=== PATIENT | female | born 1990 | race Hispanic/Latino ===

== ENCOUNTER 2022-04-24 09:46 | Observation (INO) | payer OTHER ==
[~2022-04-24] VITALS: Ht 157.5 cm; Wt 103.0 kg
[2022-04-24 11:11] VITALS: BP 141/71
[2022-04-29] MEDS ORDERED: FERR-82 PO (21:19)
[2022-04-29] MEDS ORDERED: LABE100T5 PO (21:19)
[2022-04-29] MEDS ORDERED: PREN-18 PO (21:19)
[2022-04-29] MEDS ORDERED: AEC81 PO (21:19)
== END 2022-04-24 11:12 | disposition home or self-care (01) ==
LOC: LDH 09:46
PROVIDERS: ADMIT Obstetrics & Gynecology; ATTEND Obstetrics & Gynecology
DX: O99.323 Drug use complicating pregnancy, third trimester (principal); F12.90 Cannabis use, unspecified, uncomplicated; O99.313 Alcohol use complicating pregnancy, third trimester; Z72.89 Other problems related to lifestyle; Z3A.37 37 weeks gestation of pregnancy
CPT/HCPCS: 59025; G0378

== ENCOUNTER 2023-03-19 05:07 | Emergency (ER) | payer BC, OTHER ==
[~2023-03-19] VITALS: Ht 162.6 cm; Wt 85.7 kg
[~2023-03-19 05:07] MED LIST: AEC81 PO; FERR-82 PO; FERR325T22 PO; IBUP-2077 PO; LABE100T7 PO; PREN-18 PO
[2023-03-19] MEDS ORDERED: ACETAMINOPHEN 500 MG TABLET ONE (05:12)
[2023-03-19] MEDS ORDERED: 0.9%NACL 1000ML 1,000 ML IV ONE (05:12)
[2023-03-19] MEDS ORDERED: CIPR-278 PO (05:25)
[2023-03-19] MEDS ORDERED: TAMS-1 PO (05:25)
[2023-03-19 05:26] LABS: BASOPHILS % (AUTO) 0.2 % (0.0-5.0); EOSINOPHILS % (AUTO) 0.5 % (0.0-8.0); HEMATOCRIT 40.5 % (36-48); LYMPHOCYTES % (AUTO) 12.3 % (21.0-51.0); MEAN CORPUSCULAR HEMOGLOBIN 30.5 pg (27.0-33.0); MEAN CORPUSCULAR HGB CONC 35.1 g/dL (32.0-36.0); MEAN CORPUSCULAR VOLUME 87.1 fL (79-99); MONOCYTES % (AUTO) 5.9 % (3.0-13.0); NEUTROPHILS % (AUTO) 80.5 % (40.0-77.0); PLATELET COUNT (AUTO) 241 K/uL (130-400); RED BLOOD CELL COUNT(AUTO) 4.65 MIL/uL (4.00-5.50); RED CELL DISTRIBUTION WIDTH 12.2 % (11.0-15.5)
[2023-03-19 05:43] LABS: ALBUMIN 3.5 g/dL (3.5-5.0); POTASSIUM 3.4 mmol/L (3.5-5.1); TOTAL PROTEIN, SERUM 7.9 g/dL (6.0-8.3)
[2023-03-19] MEDS ORDERED: LIDOCAINE HCL-MPF 2% 5ML VIAL ONE (05:49)
[2023-03-19] MEDS ORDERED: KETOROLAC 30MG VIAL (30MG/ML) IVP ONE (06:00)
[2023-03-19] MEDS ORDERED: CEFTRIAXONE 1G VIAL IVPB ONE (06:00)
[2023-03-19] MEDS ORDERED: ONDANSETRON 4MG INJ IVP ONE (06:00)
[2023-03-19 07:01] LABS: APPEARANCE,URINE CLEAR (CLEAR); BILIRUBIN,URINE NEGATIVE (NEGATIVE); COLOR,URINE LIGHT-YELLOW (YELLOW); GLUCOSE, URINE (UA) NEGATIVE (NEGATIVE); KETONES,URINE NEGATIVE (NEGATIVE); LEUKOCYTE ESTERASE ,URINE 250 Leu/uL (NEGATIVE); NITRATE,URINE NEGATIVE (NEGATIVE); OCCULT BLOOD,URINE SMALL (NEGATIVE); PROTEIN,URINE 10 mg/dL (NEGATIVE); UROBILINOGEN,URINE 0.2 mg/dL (0.2-1.0)
[2023-03-19 07:06] LABS: MUCUS,URINE RARE LPF (None Seen); SQUAMOUS EPITHELIAL CELL,UR RARE /HPF (0-2); WBC,URINE 26-50 /HPF (0-1)
[2023-03-19 07:56] VITALS: BP 151/74
[2023-03-19] MEDS ORDERED: CEPH500B PO (08:49)
== END 2023-03-19 08:59 | disposition home or self-care (01) ==
LOC: EDH 05:07
DX: N10 Acute pyelonephritis (principal); Z79.82 Long term (current) use of aspirin; Z20.822 Contact with and (suspected) exposure to COVID-19
CPT/HCPCS: 99284; 74176; 96365; 96375; 96361; 87426; 80053; 84703; 83690; 85025; 87040; 87088; 87880; 87804 ×2; 83605; 81001; 36415; J7030; J0696; J2405; J1885; J3490

== ENCOUNTER 2024-06-02 15:07 | Observation (INO) | payer BC ==
[~2024-06-02 15:07] MED LIST changes: +CEPH500B PO; +CIPR-278 PO; +TAMS-1 PO
[2024-06-02 15:50] LABS: APPEARANCE,URINE CLEAR (CLEAR); BILIRUBIN,URINE NEGATIVE (NEGATIVE); COLOR,URINE LIGHT-YELLOW (YELLOW); GLUCOSE, URINE (UA) NEGATIVE (NEGATIVE); KETONES,URINE NEGATIVE (NEGATIVE); LEUKOCYTE ESTERASE ,URINE NEGATIVE Leu/uL (NEGATIVE); NITRATE,URINE NEGATIVE (NEGATIVE); OCCULT BLOOD,URINE NEGATIVE (NEGATIVE); PH,URINE 6.5 (5.0-8.0); PROTEIN,URINE NEGATIVE (NEGATIVE); UROBILINOGEN,URINE 0.2 mg/dL (0.2-1.0)
[2024-06-02 16:12] LABS: ADD UA MICROSCOPIC YES
[2024-06-02 16:13] LABS: BACTERIA,URINE FEW /HPF (None Seen); RBC,URINE 0-1 /HPF (0-1); SQUAMOUS EPITHELIAL CELL,UR FEW /HPF (0-2)
== END 2024-06-02 17:25 | disposition home or self-care (01) ==
LOC: LDH 15:15
PROVIDERS: ADMIT Obstetrics & Gynecology; ATTEND Obstetrics & Gynecology
DX: Z36.89 Encounter for other specified antenatal screening (principal); Z3A.37 37 weeks gestation of pregnancy
CPT/HCPCS: 81001; 76819; G0378 ×2; G0379; 59025